=== PATIENT | female | born 2000 | race Caucasian/White ===

== ENCOUNTER 2020-01-10 22:08 | Emergency (ER) | payer OTHER ==
[~2020-01-10] VITALS: Ht 167.6 cm; Wt 62.8 kg
[2020-01-10] MEDS ORDERED: CYRE1TAB3 PO (22:13)
--- NOTE | 2020-01-10 23:37 | REPVR ---
PROCEDURE INFORMATION: Exam: CT Head Without Contrast Exam date and time: 01/10/2020 10:40 PM Age: 19 years old Clinical indication: Pain; Headache not specified; Additional info: Trauma TECHNIQUE: Imaging protocol: Computed tomography of the head without contrast. Radiation optimization: All CT scans at this facility use at least one of these dose optimization techniques: automated exposure control; mA and/or kV adjustment per patient size (includes targeted exams where dose is matched to clinical indication); or iterative reconstruction. COMPARISON: No relevant prior studies available. FINDINGS: Brain: There is no evidence of intracranial hemorrhage. No abnormal extra-axial fluid collections are identified. No mass effect or midline shift is seen. Rivero-white differentiation is preserved throughout. Cerebral ventricles: No ventriculomegaly. Bones/joints: No calvarial fracture is seen. Paranasal sinuses: The visualized sinuses are unremarkable. Mastoid air cells: There is no mastoid effusion detected. Soft tissues: Unremarkable. IMPRESSION: No acute intracranial pathology demonstrated by CT. Electronically signed by: Nya Kuo On 01/10/2020 23:36:48 PM
[2020-01-11 00:11] VITALS: BP 115/78
== END 2020-01-11 00:14 | disposition home or self-care (01) ==
LOC: M ED 22:08
DX: S09.90XA Unspecified injury of head, initial encounter (principal); R51.9 Headache, unspecified; R42 Dizziness and giddiness; W22.09XA Striking against other stationary object, initial encounter; Y92.89 Other specified places as the place of occurrence of the external cause; J45.909 Unspecified asthma, uncomplicated; Z79.3 Long term (current) use of hormonal contraceptives